=== PATIENT | male | born 1950 | race African-American/Black ===

== ENCOUNTER 2020-07-21 18:55 | Inpatient (IN) | payer MEDICARE, OTHER ==
[~2020-07-21] VITALS: Ht 190.5 cm; Wt 105.0 kg
[2020-07-21 20:37] LABS: HEMATOCRIT. 37.3 % (42.0-52.0); HEMOGLOBIN. 12.9 g/dL (14.0-18.0); MEAN CORPUSCULAR HEMOGLOBIN 32.2 pg (28.0-32.0); MEAN CORPUSCULAR VOLUME 93.3 fL (80.0-94.0); MEAN PLATELET VOLUME 8.4 fl (7.4-10.4); PLATELET 221 x1000/uL (130-400); RED CELL DISTRIBUTION WIDTH 14.7 % (11.6-14.6)
[2020-07-21 20:45] LABS: CHLORIDE 105 mEq/L (98-107)
[2020-07-21 20:47] LABS: INR 1.2; PROTHROMBIN TIME 12.7 sec (9.6-11.0)
[2020-07-21 21:26] LABS: CLARITY URINE CLEAR (CLEAR); COLOR URINE YELLOW (YELLOW); KETONES URINE NEGATIVE (NEGATIVE); LEUKOCYTE ESTERASE URINE NEGATIVE (NEGATIVE); NITRITE URINE NEGATIVE (NEGATIVE); OCCULT BLOOD URINE NEGATIVE (NEGATIVE); PH URINE 7.5 (4.5-8.0); PROTEIN URINE NEGATIVE (NEGATIVE); SPECIFIC GRAVITY URINE 1.008 (1.005-1.030)
[2020-07-21] MEDS ORDERED: POTASSIUM CHLORIDE 20MEQ TABLET SR PO NR (21:45)
[2020-07-21 21:46] LABS: PLATELET ESTIMATE NORMAL
[2020-07-22] MEDS ORDERED: KCL 10MEQ/50ML PREMIX 50 ML IV NR (00:30)
[2020-07-22] MEDS ORDERED: ASPIRIN 325MG EC TABLET PO ONE (01:30)
[2020-07-22 03:00] VITALS: BP 117/61
[2020-07-22 04:00] VITALS: BP 117/61
[2020-07-22 08:00] VITALS: BP 119/60
[2020-07-22 10:04] LABS: BASOPHILS % 0.7 % (0.0-2.0); EOSINOPHILS % 1.8 % (0.0-5.0); HEMATOCRIT. 35.3 % (42.0-52.0); HEMOGLOBIN. 11.8 g/dL (14.0-18.0); LYMPHOCYTES % 35.3 % (20.0-50.0); MEAN CORPUSCULAR HEMOGLOBIN 31.6 pg (28.0-32.0); MEAN CORPUSCULAR VOLUME 94.1 fL (80.0-94.0); MEAN PLATELET VOLUME 8.5 fl (7.4-10.4); MONOCYTES % 13.8 % (2.0-8.0); NEUTROPHILS % 48.4 % (40.0-76.0); PLATELET 215 x1000/uL (130-400); RED BLOOD CELL COUNT 3.75 mill/uL (4.7-6.1); RED CELL DISTRIBUTION WIDTH 15.2 % (11.6-14.6)
[2020-07-22 10:22] LABS: CHLORIDE 107 mEq/L (98-107)
[2020-07-22] MEDS ORDERED: ONDANSETRON HCL 4MG/2ML INJ IV PRN (11:00)
[2020-07-22] MEDS ORDERED: ENOXAPARIN 40MG/0.4ML SYR SUBCUT SCH (11:00)
[2020-07-22] MEDS ORDERED: IPRATROPIUM/ALBUTEROL 0.5-3(2.5)MG/3ML NEB HHN PRN (11:00)
[2020-07-22] MEDS ORDERED: DOCUSATE SODIUM 100MG CAPSULE PO PRN (11:00)
[2020-07-22] MEDS ORDERED: MAGNESIUM/ALUMINUM HYDROXIDE/SIMETHICONE 30ML UDC PO PRN (11:00)
[2020-07-22] MEDS ORDERED: CLONIDINE 0.1MG TABLET PO PRN (11:00)
[2020-07-22] MEDS ORDERED: ACETAMINOPHEN 325MG TABLET PO PRN (11:00)
[2020-07-22] MEDS ORDERED: HYDROCODONE/ACETAMINOPHEN 5/325MG TABLET PO PRN (11:00)
[2020-07-22] MEDS ORDERED: POTASSIUM CHLORIDE 20MEQ/PACKET PO SCH (12:00)
[2020-07-22] MEDS: ENOXAPARIN 30MG/0.3ML SYR SUBCUT SCH ×2 (12:47→21:48)
[2020-07-22 16:00] VITALS: BP 121/67
[2020-07-22 20:00] VITALS: BP 111/71
[2020-07-23] VITALS: BP 115/68
[2020-07-23 04:00] VITALS: BP 109/62
[2020-07-23] MEDS: OMEPRAZOLE 20MG CAPSULE EXTENDED RELEASE PO SCH (06:05)
[2020-07-23 07:13] LABS: BASOPHILS % 1.4 % (0.0-2.0); EOSINOPHILS % 2.2 % (0.0-5.0); HEMATOCRIT. 35.8 % (42.0-52.0); HEMOGLOBIN. 11.7 g/dL (14.0-18.0); LYMPHOCYTES % 40.1 % (20.0-50.0); MEAN CORPUSCULAR HEMOGLOBIN 30.7 pg (28.0-32.0); MEAN CORPUSCULAR VOLUME 93.9 fL (80.0-94.0); MEAN PLATELET VOLUME 8.7 fl (7.4-10.4); MONOCYTES % 12.7 % (2.0-8.0); NEUTROPHILS % 43.6 % (40.0-76.0); PLATELET 217 x1000/uL (130-400); RED BLOOD CELL COUNT 3.82 mill/uL (4.7-6.1); RED CELL DISTRIBUTION WIDTH 14.9 % (11.6-14.6)
[2020-07-23 07:19] LABS: CHLORIDE 104 mEq/L (98-107)
[2020-07-23 07:25] LABS: PHOSPHORUS 2.9 mg/dL (2.5-4.9)
[2020-07-23 07:29] LABS: HDL CHOLESTEROL 41 mg/dL (40-59); LDL CHOLESTEROL 75 mg/dL (5-100)
[2020-07-23 08:00] VITALS: BP 118/64
[2020-07-23] MEDS: ENOXAPARIN 30MG/0.3ML SYR SUBCUT SCH ×2 (09:13→20:46)
[2020-07-23 12:00] VITALS: BP 105/64
[2020-07-23 16:00] VITALS: BP 111/64
[2020-07-23] MEDS: POTASSIUM CHLORIDE 20MEQ TABLET SR PO SCH (17:10)
[2020-07-23 20:00] VITALS: BP 104/63
[2020-07-24] VITALS (7 sets, daily range): BP systolic 104–121; BP diastolic 59–65
[2020-07-24] MEDS: OMEPRAZOLE 20MG CAPSULE EXTENDED RELEASE PO SCH (06:25)
[2020-07-24 06:52] LABS: CHLORIDE 106 mEq/L (98-107)
[2020-07-24 06:55] LABS: HEMATOCRIT. 32.8 % (42.0-52.0); MEAN CORPUSCULAR HEMOGLOBIN 31.7 pg (28.0-32.0); MEAN CORPUSCULAR VOLUME 94.5 fL (80.0-94.0); MEAN PLATELET VOLUME 8.9 fl (7.4-10.4); PLATELET 210 x1000/uL (130-400); RED BLOOD CELL COUNT 3.47 mill/uL (4.7-6.1)
[2020-07-24] MEDS: ENOXAPARIN 30MG/0.3ML SYR SUBCUT SCH ×2 (08:57→20:23)
[2020-07-24] MEDS: POTASSIUM CHLORIDE 20MEQ TABLET SR PO SCH (08:57)
[2020-07-24 14:48] LABS: PLATELET ESTIMATE NORMAL
[2020-07-24] MEDS ORDERED: FAMOTIDINE 20MG TABLET PO SCH (21:00)
[2020-07-25] VITALS: BP 120/78
== END 2020-07-25 01:52 | disposition home or self-care (01) | DRG 74 ==
LOC: ER 18:55 → 5WST 07-22 00:03 → EDBEDREQDT 07-22 00:20 → EDBEDREQ 07-22 00:20 → EDBEDREQTM 07-22 00:20 → ENRESERV 07-22 01:37
PROVIDERS: ADMIT Internal Medicine; ATTEND Internal Medicine
DX: G90.9 Disorder of the autonomic nervous system, unspecified (principal); E87.6 Hypokalemia; I11.0 Hypertensive heart disease with heart failure; Z20.822 Contact with and (suspected) exposure to COVID-19; I50.9 Heart failure, unspecified; I48.91 Unspecified atrial fibrillation; Z79.02 Long term (current) use of antithrombotics/antiplatelets
CPT/HCPCS: 36415; 70551; 71045; 80048; 80053; 80061; 80076; 80320; 81003; 83735; 84100; 84443; 84484; 85025; 87426; 93005; 93306; 93880; 97162; 99285; J1650; J3480; G0480

== ENCOUNTER 2021-02-13 21:15 | Inpatient (IN) | payer MEDICARE, OTHER ==
[~2021-02-13] VITALS: Ht 190.5 cm; Wt 111.6 kg
[~2021-02-13 21:15] MED LIST: AMOX-494 MT
[2021-02-13] MEDS ORDERED: SODIUM CHLORIDE 0.9% 1,000 ML IV ONE (21:45)
[2021-02-13 22:47] LABS: HEMATOCRIT. 44.9 % (42.0-52.0); MEAN CORPUSCULAR HEMOGLOBIN 31.9 pg (28.0-32.0); MEAN CORPUSCULAR VOLUME 95.2 fL (80.0-94.0); MEAN PLATELET VOLUME 8.9 fl (7.4-10.4); PLATELET 388 x1000/uL (130-400); RED BLOOD CELL COUNT 4.71 mill/uL (4.7-6.1); RED CELL DISTRIBUTION WIDTH 13.8 % (11.6-14.6)
[2021-02-13 22:48] LABS: CHLORIDE 85 mEq/L (98-107)
[2021-02-13 22:52] LABS: ETHANOL BLOOD < 10 mg/dL
[2021-02-13 22:56] LABS: CREATINE KINASE 294 IU/L (39-308)
[2021-02-13] MEDS ORDERED: PIPERACILLIN/TAZ 3.375G PREMIX 50 ML IV NR (23:30)
[2021-02-13 23:32] LABS: CLARITY URINE CLOUDY (CLEAR); COLOR URINE DARK YELLOW (YELLOW); KETONES URINE NEGATIVE (NEGATIVE); LEUKOCYTE ESTERASE URINE 2+ (NEGATIVE); NITRITE URINE NEGATIVE (NEGATIVE); OCCULT BLOOD URINE 3+ (NEGATIVE); PH URINE 5.5 (4.5-8.0); PROTEIN URINE 1+ (NEGATIVE); SPECIFIC GRAVITY URINE 1.013 (1.005-1.030); UROBILINOGEN URINE 0.2 E.U./dL (0.2-1.0)
[2021-02-13 23:38] LABS: PLATELET ESTIMATE NORMAL
[2021-02-14] MEDS ORDERED: SODIUM CHLORIDE 0.9% 1,000 ML IV ONE (00:15)
[2021-02-14 00:29] LABS: *AMPHETAMINES SCREEN URINE NEGATIVE (NEGATIVE); *BARBITURATES SCREEN URINE NEGATIVE (NEGATIVE); *BENZODIAZEPINES SCREEN URINE NEGATIVE (NEGATIVE); *COCAINE SCREEN URINE PRESUMTIVE POSITIVE (NEGATIVE)
[2021-02-14 00:30] LABS: CANNABINOID URINE SCREEN PRESUMTIVE POSITIVE (NEGATIVE); METHADONE URINE SCREEN NEGATIVE (NEGATIVE); OPIATES URINE SCREEN NEGATIVE (NEGATIVE); PHENCYCLIDINE URINE SCREEN NEGATIVE (NEGATIVE)
[2021-02-14 08:35] VITALS: BP 145/88
[2021-02-14 10:44] VITALS: BP 145/88
[2021-02-14] MEDS ORDERED: ONDANSETRON HCL 4MG/2ML INJ IV PRN (11:15)
[2021-02-14] MEDS ORDERED: CLONIDINE 0.1MG TABLET PO PRN (11:15)
[2021-02-14] MEDS ORDERED: DOCUSATE SODIUM 100MG CAPSULE PO PRN (11:15)
[2021-02-14] MEDS ORDERED: MAGNESIUM/ALUMINUM HYDROXIDE/SIMETHICONE 30ML UDC PO PRN (11:15)
[2021-02-14] MEDS ORDERED: ACETAMINOPHEN 325MG TABLET PO PRN (11:15)
[2021-02-14] MEDS: SODIUM CHLORIDE 0.9% 1,000 ML IV SCH ×2 (11:23→23:43)
[2021-02-14] MEDS ORDERED: NALOXONE HCL 0.4MG/ML VIAL IV PRN (11:30)
[2021-02-14 12:00] VITALS: BP 147/91
[2021-02-14] MEDS: ENOXAPARIN 40MG/0.4ML SYR SUBCUT SCH (12:31)
[2021-02-14] MEDS: PANTOPRAZOLE SODIUM 40 MG/VIAL IV SCH (12:31)
[2021-02-14] MEDS: CEFTRIAXONE 1,000 MG in DEXTROSE 5% WATER 50 ML IV SCH (13:01)
[2021-02-14 16:00] VITALS: BP 155/70
[2021-02-14] MEDS ORDERED: VANCOMYCIN 2,000 MG in DEXT 5% WATER 500 ML IV NR (17:00)
[2021-02-14] MEDS: TAMSULOSIN HCL 0.4MG SR CAPSULE PO SCH (17:16)
[2021-02-14 20:00] VITALS: BP 126/76
[2021-02-14] MEDS: LINEZOLID 600 MG PREMIX 300 ML IV SCH (21:37)
[2021-02-15] VITALS: BP 132/80
[2021-02-15 04:00] VITALS: BP 150/60
[2021-02-15 06:29] LABS: CHLORIDE 103 mEq/L (98-107)
[2021-02-15 06:33] LABS: HEMATOCRIT. 41.2 % (42.0-52.0); HEMOGLOBIN. 13.9 g/dL (14.0-18.0); MEAN CORPUSCULAR HEMOGLOBIN 32.2 pg (28.0-32.0); MEAN CORPUSCULAR VOLUME 95.2 fL (80.0-94.0); MEAN PLATELET VOLUME 9.2 fl (7.4-10.4); PLATELET 390 x1000/uL (130-400); RED BLOOD CELL COUNT 4.33 mill/uL (4.7-6.1); RED CELL DISTRIBUTION WIDTH 13.6 % (11.6-14.6)
[2021-02-15 06:41] LABS: LDL CHOLESTEROL 101 mg/dL (5-100)
[2021-02-15 06:42] LABS: T4 FREE 1.15 ng/dL (0.76-1.46)
[2021-02-15 06:44] LABS: HDL CHOLESTEROL 20 mg/dL (40-59)
[2021-02-15 08:00] VITALS: BP 112/64
[2021-02-15] MEDS: PANTOPRAZOLE SODIUM 40 MG/VIAL IV SCH (10:20)
[2021-02-15] MEDS: LINEZOLID 600 MG PREMIX 300 ML IV SCH ×2 (10:20→21:32)
[2021-02-15] MEDS: TAMSULOSIN HCL 0.4MG SR CAPSULE PO SCH (10:20)
[2021-02-15] MEDS: ENOXAPARIN 40MG/0.4ML SYR SUBCUT SCH (10:20)
[2021-02-15] MEDS ORDERED: SODIUM CHLORIDE 0.45% 1,000 ML IV SCH (10:45)
[2021-02-15] MEDS ORDERED: POTASSIUM CHLORIDE 20MEQ TABLET SR PO NR (10:45)
[2021-02-15 12:00] VITALS: BP 119/73
[2021-02-15] MEDS: CEFTRIAXONE 1,000 MG in DEXTROSE 5% WATER 50 ML IV SCH (12:12)
[2021-02-15 16:00] VITALS: BP 122/68
[2021-02-15] MEDS: METOCLOPRAMIDE HCL 10MG/2ML VIAL IV SCH ×2 (18:51→23:34)
[2021-02-15 20:00] VITALS: BP 126/70
[2021-02-15 20:27] LABS: PLATELET ESTIMATE NORMAL
[2021-02-15] MEDS: ENOXAPARIN 30MG/0.3ML SYR SUBCUT SCH (21:32)
[2021-02-15] MEDS: SODIUM CHLORIDE 0.9% 1,000 ML IV SCH (21:39)
[2021-02-16] VITALS: BP 115/67
[2021-02-16 04:00] VITALS: BP 136/78
[2021-02-16] MEDS: METOCLOPRAMIDE HCL 10MG/2ML VIAL IV SCH ×3 (06:26→16:49)
[2021-02-16 06:29] LABS: HEMATOCRIT. 34.5 % (42.0-52.0); MEAN CORPUSCULAR HEMOGLOBIN 32.9 pg (28.0-32.0); MEAN CORPUSCULAR VOLUME 95.1 fL (80.0-94.0); MEAN PLATELET VOLUME 8.3 fl (7.4-10.4); PLATELET 359 x1000/uL (130-400); RED BLOOD CELL COUNT 3.63 mill/uL (4.7-6.1); RED CELL DISTRIBUTION WIDTH 13.5 % (11.6-14.6)
[2021-02-16 08:00] VITALS: BP 133/75
[2021-02-16] MEDS: PANTOPRAZOLE SODIUM 40 MG/VIAL IV SCH (09:00)
[2021-02-16] MEDS: LINEZOLID 600 MG PREMIX 300 ML IV SCH (09:00)
[2021-02-16] MEDS: TAMSULOSIN HCL 0.4MG SR CAPSULE PO SCH (09:00)
[2021-02-16] MEDS: ENOXAPARIN 30MG/0.3ML SYR SUBCUT SCH ×2 (09:00→22:11)
[2021-02-16 12:00] VITALS: BP 128/81
[2021-02-16] MEDS: CEFTRIAXONE 1,000 MG in DEXTROSE 5% WATER 50 ML IV SCH (12:54)
[2021-02-16] MEDS: SODIUM CHLORIDE 0.9% 1,000 ML IV SCH (12:55)
[2021-02-16 13:26] LABS: CHLORIDE 108 mEq/L (98-107)
[2021-02-16 13:33] LABS: PHOSPHORUS 1.7 mg/dL (2.5-4.9)
[2021-02-16] MEDS ORDERED: LACTULOSE 20G/30ML UDC PO NR (14:15)
[2021-02-16] MEDS: AMPICILLIN 2,000 MG in SODIUM CHLORIDE 0.9% 100 ML IV SCH ×2 (15:24→16:49)
[2021-02-16 16:00] VITALS: BP 143/79
[2021-02-16] MEDS ORDERED: NA PHOS,M-B/NA PHOS,DI-BA ENEMA 118ML PR NR (16:45)
[2021-02-16 18:05] LABS: PLATELET ESTIMATE NORMAL
[2021-02-16 20:48] LABS: CREATINE KINASE 59 IU/L (39-308)
[2021-02-17] MEDS: AMPICILLIN 2,000 MG in SODIUM CHLORIDE 0.9% 100 ML IV SCH ×5 (01:31→23:46)
[2021-02-17] MEDS: METOCLOPRAMIDE HCL 10MG/2ML VIAL IV SCH ×5 (01:31→23:46)
[2021-02-17 08:00] VITALS: BP 135/66
[2021-02-17] MEDS: PANTOPRAZOLE SODIUM 40 MG/VIAL IV SCH (08:55)
[2021-02-17] MEDS: ENOXAPARIN 30MG/0.3ML SYR SUBCUT SCH ×2 (08:55→20:01)
[2021-02-17] MEDS: TAMSULOSIN HCL 0.4MG SR CAPSULE PO SCH (08:56)
[2021-02-17 12:00] VITALS: BP 113/61
[2021-02-17 16:02] VITALS: BP 127/70
[2021-02-17 20:00] VITALS: BP 120/70
[2021-02-17] MEDS: HYDROCODONE/ACETAMINOPHEN 5/325MG TABLET PO PRN (20:05)
[2021-02-18] VITALS: BP 139/90
[2021-02-18 04:00] VITALS: BP 136/87
[2021-02-18] MEDS: METOCLOPRAMIDE HCL 10MG/2ML VIAL IV SCH ×3 (05:03→17:23)
[2021-02-18] MEDS: AMPICILLIN 2,000 MG in SODIUM CHLORIDE 0.9% 100 ML IV SCH ×3 (05:04→17:23)
[2021-02-18] MEDS: HYDROCODONE/ACETAMINOPHEN 5/325MG TABLET PO PRN (06:32)
[2021-02-18 08:00] VITALS: BP 110/71
[2021-02-18] MEDS ORDERED: TAMS-11 PO (08:43)
[2021-02-18] MEDS: PANTOPRAZOLE SODIUM 40 MG/VIAL IV SCH (09:09)
[2021-02-18] MEDS: TAMSULOSIN HCL 0.4MG SR CAPSULE PO SCH (09:09)
[2021-02-18] MEDS: ENOXAPARIN 30MG/0.3ML SYR SUBCUT SCH (09:09)
[2021-02-18 11:47] LABS: HEMATOCRIT. 37.8 % (42.0-52.0); HEMOGLOBIN. 12.7 g/dL (14.0-18.0); MEAN CORPUSCULAR HEMOGLOBIN 32.1 pg (28.0-32.0); MEAN CORPUSCULAR VOLUME 95.5 fL (80.0-94.0); MEAN PLATELET VOLUME 7.8 fl (7.4-10.4); PLATELET 482 x1000/uL (130-400); RED BLOOD CELL COUNT 3.96 mill/uL (4.7-6.1); RED CELL DISTRIBUTION WIDTH 13.7 % (11.6-14.6)
[2021-02-18 11:53] LABS: CHLORIDE 102 mEq/L (98-107)
[2021-02-18 12:00] VITALS: BP 102/55
[2021-02-18 13:49] LABS: PLATELET ESTIMATE SLIGHTLY INCREASED
[2021-02-18 14:26] VITALS: BP 136/72
[2021-02-18] MEDS ORDERED: LINE600T14 MT (14:38)
[2021-02-18 16:00] VITALS: BP 136/72
[2021-02-18] MEDS ORDERED: POTASSIUM CHLORIDE 20MEQ TABLET SR PO NR (16:30)
[2021-02-19] MEDS ORDERED: FAMOTIDINE 20MG TABLET PO SCH (09:00)
== END 2021-02-18 20:44 | disposition home or self-care (01) | DRG 871 ==
LOC: ER 21:15 → EDBEDREQ 02-14 01:06 → EDBEDREQTM 02-14 01:06 → 8WST 02-14 06:55 → ENRESERV 02-14 07:33
PROVIDERS: ADMIT Internal Medicine; ATTEND Internal Medicine
DX: A40.9 Streptococcal sepsis, unspecified (principal); N17.0 Acute kidney failure with tubular necrosis; E43 Unspecified severe protein-calorie malnutrition; E87.1 Hypo-osmolality and hyponatremia; E87.2 Acidosis; I13.0 Hypertensive heart and chronic kidney disease with heart failure and stage 1 through stage 4 chronic kidney disease, or unspecified chronic kidney disease; N13.6 Pyonephrosis; F14.10 Cocaine abuse, uncomplicated; I50.9 Heart failure, unspecified; N18.9 Chronic kidney disease, unspecified; B95.2 Enterococcus as the cause of diseases classified elsewhere; N40.1 Benign prostatic hyperplasia with lower urinary tract symptoms; F12.10 Cannabis abuse, uncomplicated; Z68.30 Body mass index [BMI] 30.0-30.9, adult; I48.91 Unspecified atrial fibrillation; Z20.822 Contact with and (suspected) exposure to COVID-19; Z87.891 Personal history of nicotine dependence
CPT/HCPCS: 36415; 71045; 74018; 76770; 80048; 80053; 80061; 80076; 80305; 80320; 81003; 82533; 82550; 83605; 83735; 83930; 84100; 84145; 84295; 84439; 84443; 84484; 85025; 87077; 87186; 87426; 93005; 93306; 93970; 97162; 99291; C9113; J0290; J0696; J1650; J2020; J2543; J2765; J3370; J7030; J7050; J7060; A4315; G0480

== ENCOUNTER 2021-02-28 13:15 | Inpatient (IN) | payer MEDICARE, OTHER ==
[~2021-02-28] VITALS: Ht 190.5 cm; Wt 98.4 kg
[~2021-02-28 13:15] MED LIST changes: -AMOX-494 MT; +LINE600T14 MT; +TAMS-11 PO
[2021-02-28] MEDS ORDERED: ONDANSETRON HCL 4MG/2ML INJ IV STA (14:39)
[2021-02-28 15:22] LABS: HEMATOCRIT. 42.1 % (42.0-52.0); HEMOGLOBIN. 13.8 g/dL (14.0-18.0); MEAN CORPUSCULAR HEMOGLOBIN 31.3 pg (28.0-32.0); MEAN CORPUSCULAR VOLUME 95.4 fL (80.0-94.0); MEAN PLATELET VOLUME 8.1 fl (7.4-10.4); PLATELET 309 x1000/uL (130-400); RED BLOOD CELL COUNT 4.42 mill/uL (4.7-6.1)
[2021-02-28 15:27] LABS: CHLORIDE 98 mEq/L (98-107)
[2021-02-28 16:01] LABS: PLATELET ESTIMATE NORMAL
[2021-02-28 19:36] LABS: CLARITY URINE CLEAR (CLEAR); COLOR URINE YELLOW (YELLOW); KETONES URINE NEGATIVE (NEGATIVE); LEUKOCYTE ESTERASE URINE 3+ (NEGATIVE); NITRITE URINE NEGATIVE (NEGATIVE); OCCULT BLOOD URINE 3+ (NEGATIVE); PROTEIN URINE 1+ (NEGATIVE); SPECIFIC GRAVITY URINE 1.008 (1.005-1.030); UROBILINOGEN URINE 0.2 E.U./dL (0.2-1.0)
[2021-02-28] MEDS ORDERED: ACETAMINOPHEN 325MG TABLET PO ONE (19:45)
[2021-02-28] MEDS ORDERED: CEFTRIAXONE 1 G PREMIX 50 ML IV NR (20:00)
[2021-02-28] MEDS ORDERED: ENOXAPARIN 40MG/0.4ML SYR SUBCUT SCH (20:15)
[2021-02-28] MEDS ORDERED: MAGNESIUM/ALUMINUM HYDROXIDE/SIMETHICONE 30ML UDC PO PRN (20:15)
[2021-02-28] MEDS ORDERED: ACETAMINOPHEN 325MG TABLET PO PRN ×2 (20:15)
[2021-02-28] MEDS ORDERED: ONDANSETRON HCL 4MG/2ML INJ IV PRN (20:15)
[2021-02-28] MEDS ORDERED: HYDROCODONE/ACETAMINOPHEN 5/325MG TABLET PO PRN (20:15)
[2021-02-28] MEDS ORDERED: ENOXAPARIN 30MG/0.3ML SYR SUBCUT SCH (21:00)
[2021-02-28 22:40] VITALS: BP 97/58
[2021-03-01] MEDS: SODIUM CHLORIDE 0.9% 1,000 ML IV SCH ×5 (02:00→22:36)
[2021-03-01 04:00] VITALS: BP 111/61
[2021-03-01 06:45] LABS: BASOPHILS % 0.5 % (0.0-2.0); EOSINOPHILS % 2.7 % (0.0-5.0); HEMATOCRIT. 37.5 % (42.0-52.0); HEMOGLOBIN. 12.3 g/dL (14.0-18.0); LYMPHOCYTES % 13.8 % (20.0-50.0); MEAN CORPUSCULAR HEMOGLOBIN 32.2 pg (28.0-32.0); MEAN CORPUSCULAR VOLUME 97.9 fL (80.0-94.0); MEAN PLATELET VOLUME 8.4 fl (7.4-10.4); MONOCYTES % 12.7 % (2.0-8.0); NEUTROPHILS % 70.3 % (40.0-76.0); PLATELET 250 x1000/uL (130-400); RED BLOOD CELL COUNT 3.82 mill/uL (4.7-6.1); RED CELL DISTRIBUTION WIDTH 13.9 % (11.6-14.6)
[2021-03-01 07:07] LABS: PHOSPHORUS 4.1 mg/dL (2.5-4.9)
[2021-03-01 08:00] VITALS: BP 106/66
[2021-03-01] MEDS: THIAMINE HCL 100MG TABLET PO SCH (09:13)
[2021-03-01 12:00] VITALS: BP 120/73
[2021-03-01] MEDS ORDERED: LOSA25TA26 PO (13:48)
[2021-03-01] MEDS ORDERED: LOSA25TA26 MT (13:49)
[2021-03-01] MEDS ORDERED: SPIR25TA6 MT (13:50)
[2021-03-01] MEDS: PIPERACILLIN/TAZOBACTAM 3.375 G in DEXTROSE 5% WATER 50 ML IV SCH ×2 (13:54→22:36)
[2021-03-01 16:00] VITALS: BP 110/62
[2021-03-01] MEDS: ENOXAPARIN 40MG/0.4ML SYR SUBCUT SCH (17:25)
[2021-03-01 20:00] VITALS: BP 116/64
[2021-03-02] VITALS: BP 119/63
[2021-03-02 04:00] VITALS: BP 108/67
[2021-03-02] MEDS: PIPERACILLIN/TAZOBACTAM 3.375 G in DEXTROSE 5% WATER 50 ML IV SCH ×3 (05:22→22:26)
[2021-03-02] MEDS: SODIUM CHLORIDE 0.9% 1,000 ML IV SCH (05:23)
[2021-03-02 08:00] VITALS: BP 124/72
[2021-03-02 08:08] LABS: CHLORIDE 109 mEq/L (98-107)
[2021-03-02 08:20] LABS: BASOPHILS % 0.8 % (0.0-2.0); EOSINOPHILS % 3.9 % (0.0-5.0); HEMATOCRIT. 33.4 % (42.0-52.0); HEMOGLOBIN. 11.1 g/dL (14.0-18.0); LYMPHOCYTES % 21.9 % (20.0-50.0); MEAN CORPUSCULAR HEMOGLOBIN 31.8 pg (28.0-32.0); MEAN CORPUSCULAR VOLUME 95.9 fL (80.0-94.0); MEAN PLATELET VOLUME 8.5 fl (7.4-10.4); MONOCYTES % 14.5 % (2.0-8.0); NEUTROPHILS % 58.9 % (40.0-76.0); PLATELET 267 x1000/uL (130-400); RED BLOOD CELL COUNT 3.48 mill/uL (4.7-6.1)
[2021-03-02] MEDS: THIAMINE HCL 100MG TABLET PO SCH (09:40)
[2021-03-02] MEDS ORDERED: POTASSIUM CHLORIDE 20MEQ TABLET SR PO NR (10:00)
[2021-03-02 12:00] VITALS: BP 133/83
[2021-03-02 16:00] VITALS: BP 121/84
[2021-03-02] MEDS: ENOXAPARIN 40MG/0.4ML SYR SUBCUT SCH (18:50)
[2021-03-02 20:00] VITALS: BP 126/78
[2021-03-02] MEDS: TAMSULOSIN HCL 0.4MG SR CAPSULE PO SCH (22:26)
[2021-03-02] MEDS: FINASTERIDE 5MG TABLET PO SCH (22:26)
[2021-03-02] MEDS: FLUCONAZOLE 150MG TABLET PO SCH (22:26)
[2021-03-03] VITALS: BP 122/70
[2021-03-03 04:00] VITALS: BP 123/76
[2021-03-03] MEDS: PIPERACILLIN/TAZOBACTAM 3.375 G in DEXTROSE 5% WATER 50 ML IV SCH ×2 (05:20→13:35)
[2021-03-03 06:59] LABS: BASOPHILS % 1.5 % (0.0-2.0); EOSINOPHILS % 2.5 % (0.0-5.0); HEMATOCRIT. 32.7 % (42.0-52.0); LYMPHOCYTES % 29.8 % (20.0-50.0); MEAN CORPUSCULAR HEMOGLOBIN 31.9 pg (28.0-32.0); MEAN CORPUSCULAR VOLUME 94.7 fL (80.0-94.0); MEAN PLATELET VOLUME 8.2 fl (7.4-10.4); MONOCYTES % 13.5 % (2.0-8.0); NEUTROPHILS % 52.7 % (40.0-76.0); PLATELET 249 x1000/uL (130-400); RED BLOOD CELL COUNT 3.46 mill/uL (4.7-6.1)
[2021-03-03 07:00] LABS: CHLORIDE 107 mEq/L (98-107)
[2021-03-03 07:17] LABS: PHOSPHORUS 2.6 mg/dL (2.5-4.9)
[2021-03-03] MEDS ORDERED: POTASSIUM CHLORIDE 20MEQ TABLET SR PO SCH (08:30)
[2021-03-03] MEDS: TAMSULOSIN HCL 0.4MG SR CAPSULE PO SCH (09:37)
[2021-03-03] MEDS: THIAMINE HCL 100MG TABLET PO SCH (09:38)
[2021-03-03] MEDS: FINASTERIDE 5MG TABLET PO SCH (09:38)
[2021-03-03] MEDS ORDERED: MAGNESIUM 2 G PREMIX 50 ML IV SCH (10:00)
[2021-03-03] MEDS: FLUCONAZOLE 150MG TABLET PO SCH (13:28)
[2021-03-03] MEDS ORDERED: FINA5TAB11 PO (15:57)
[2021-03-03] MEDS ORDERED: DIF15 PO (15:57)
[2021-03-03] MEDS ORDERED: THIA100T72 PO (15:57)
[2021-03-03] MEDS ORDERED: POLY17PO3 MT (16:01)
[2021-03-03] MEDS: ENOXAPARIN 40MG/0.4ML SYR SUBCUT SCH (17:21)
== END 2021-03-03 17:45 | disposition home or self-care (01) | DRG 872 ==
LOC: ER 13:15 → 6EST 19:36 → EDBEDREQTM 19:42 → EDBEDREQ 19:42 → SUPCPDRO 19:59 → ENRESERV 21:04
PROVIDERS: ADMIT Internal Medicine; ATTEND Internal Medicine
DX: A41.9 Sepsis, unspecified organism (principal); E87.1 Hypo-osmolality and hyponatremia; N17.9 Acute kidney failure, unspecified; E87.2 Acidosis; N13.6 Pyonephrosis; I13.0 Hypertensive heart and chronic kidney disease with heart failure and stage 1 through stage 4 chronic kidney disease, or unspecified chronic kidney disease; N18.9 Chronic kidney disease, unspecified; I50.9 Heart failure, unspecified; N40.0 Benign prostatic hyperplasia without lower urinary tract symptoms; K59.00 Constipation, unspecified; E88.09 Other disorders of plasma-protein metabolism, not elsewhere classified; D64.9 Anemia, unspecified; Z79.899 Other long term (current) drug therapy; Z87.891 Personal history of nicotine dependence; Z91.19 Patient's noncompliance with other medical treatment and regimen
CPT/HCPCS: 36415; 74176; 76770; 80048; 80053; 81003; 83735; 84100; 84145; 84484; 85025; 87106; 99285; J0696; J1650; J2405; J2543; J3475; J7060; A4315

== ENCOUNTER 2021-03-04 16:14 | Emergency (ER) | payer MEDICARE, OTHER ==
[~2021-03-04] VITALS: Ht 190.5 cm; Wt 92.0 kg
[~2021-03-04 16:14] MED LIST changes: +DIF15 PO; +FINA5TAB11 PO; +LOSA25TA26 MT; +POLY17PO3 MT; +SPIR25TA6 MT; +THIA100T72 PO
[2021-03-04 16:17] VITALS: BP 135/87
== END 2021-03-04 19:24 | disposition home or self-care (01) ==
LOC: ER 16:14
DX: R33.9 Retention of urine, unspecified (principal); I11.0 Hypertensive heart disease with heart failure; I50.9 Heart failure, unspecified; Z98.890 Other specified postprocedural states
CPT/HCPCS: 51702; 99284

== ENCOUNTER 2021-10-14 12:54 | Inpatient (IN) | payer MEDICARE, OTHER, MEDICAID ==
[~2021-10-14] VITALS: Ht 182.9 cm; Wt 81.1 kg
[2021-10-14] MEDS ORDERED: SODIUM CHLORIDE 0.9% 1000ML BAG (SEPSIS BOLUS) IV NR (16:00)
[2021-10-14 16:06] LABS: BASOPHILS % 0.5 % (0.0-2.0); EOSINOPHILS % 1.2 % (0.0-5.0); HEMATOCRIT. 50.2 % (42.0-52.0); HEMOGLOBIN. 16.2 g/dL (14.0-18.0); LYMPHOCYTES % 22.9 % (20.0-50.0); MEAN CORPUSCULAR HEMOGLOBIN 32.2 pg (28.0-32.0); MEAN CORPUSCULAR VOLUME 99.6 fL (80.0-94.0); MONOCYTES % 12.9 % (2.0-8.0); NEUTROPHILS % 62.5 % (40.0-76.0); RED BLOOD CELL COUNT 5.04 mill/uL (4.7-6.1); RED CELL DISTRIBUTION WIDTH 15.2 % (11.6-14.6)
[2021-10-14 16:11] LABS: CHLORIDE 113 mEq/L (98-107)
[2021-10-14 16:55] LABS: CLARITY URINE CLEAR (CLEAR); COLOR URINE YELLOW (YELLOW); KETONES URINE NEGATIVE (NEGATIVE); LEUKOCYTE ESTERASE URINE 1+ (NEGATIVE); NITRITE URINE POSITIVE (NEGATIVE); OCCULT BLOOD URINE 3+ (NEGATIVE); PH URINE 7.5 (4.5-8.0); PROTEIN URINE NEGATIVE (NEGATIVE); SPECIFIC GRAVITY URINE 1.003 (1.005-1.030); UROBILINOGEN URINE 0.2 E.U./dL (0.2-1.0)
[2021-10-14 17:01] LABS: MEAN PLATELET VOLUME 10.3 fl (7.4-10.4); PLATELET 198 x1000/uL (130-400)
[2021-10-14] MEDS ORDERED: LEVOFLOXACIN 500MG PREMIX 100 ML IV NR (20:45)
[2021-10-15 02:22] VITALS: BP 142/70
[2021-10-15] MEDS ORDERED: ACETAMINOPHEN 325MG TABLET PO PRN ×3 (03:30→10:15)
[2021-10-15] MEDS ORDERED: CLONIDINE 0.1MG TABLET PO PRN ×2 (03:30→10:15)
[2021-10-15 08:00] VITALS: BP 115/61
[2021-10-15] MEDS ORDERED: DOCUSATE SODIUM 100MG CAPSULE PO PRN (10:15)
[2021-10-15] MEDS ORDERED: IPRATROPIUM/ALBUTEROL 0.5-3(2.5)MG/3ML NEB HHN PRN (10:15)
[2021-10-15] MEDS ORDERED: CEFTRIAXONE 1 G PREMIX 50 ML IV SCH (10:15)
[2021-10-15] MEDS ORDERED: ONDANSETRON HCL 4MG/2ML INJ IV PRN (10:15)
[2021-10-15] MEDS ORDERED: TAMSULOSIN HCL 0.4MG SR CAPSULE PO SCH (10:30)
[2021-10-15] MEDS ORDERED: LACTULOSE 20G/30ML UDC PO PRN (10:30)
[2021-10-15] MEDS: CEFTRIAXONE 1,000 MG in DEXTROSE 5% WATER 50 ML IV SCH (11:52)
[2021-10-15] MEDS: FINASTERIDE 5MG TABLET PO SCH (11:52)
[2021-10-15] MEDS: SODIUM CHLORIDE 0.9% 1,000 ML IV SCH ×2 (11:54→22:47)
[2021-10-15 12:00] VITALS: BP 117/56
[2021-10-15] MEDS ORDERED: DABI75CA3 MT (12:55)
[2021-10-15 13:24] LABS: BASOPHILS % 0.5 % (0.0-2.0); EOSINOPHILS % 1.9 % (0.0-5.0); HEMATOCRIT. 39.2 % (42.0-52.0); HEMOGLOBIN. 12.8 g/dL (14.0-18.0); LYMPHOCYTES % 18.2 % (20.0-50.0); MEAN CORPUSCULAR HEMOGLOBIN 32.2 pg (28.0-32.0); MEAN CORPUSCULAR VOLUME 98.4 fL (80.0-94.0); MEAN PLATELET VOLUME 9.9 fl (7.4-10.4); MONOCYTES % 11.8 % (2.0-8.0); NEUTROPHILS % 67.6 % (40.0-76.0); PLATELET 143 x1000/uL (130-400); RED BLOOD CELL COUNT 3.98 mill/uL (4.7-6.1); RED CELL DISTRIBUTION WIDTH 15.2 % (11.6-14.6)
[2021-10-15 13:31] LABS: INR 1.2; PROTHROMBIN TIME 12.4 sec (9.6-11.0)
[2021-10-15 13:38] LABS: CHLORIDE 107 mEq/L (98-107)
[2021-10-15] MEDS ORDERED: NALOXONE HCL 0.4MG/ML VIAL IV PRN (14:15)
[2021-10-15] MEDS ORDERED: IOHEXOL-300 100 ML BOTTLE ONE (15:11)
[2021-10-15 16:00] VITALS: BP 118/55
[2021-10-15] MEDS ORDERED: NA PHOS,M-B/NA PHOS,DI-BA ENEMA 118ML PR NR (16:00)
[2021-10-15 20:00] VITALS: BP 121/72
[2021-10-15] MEDS ORDERED: LEVOFLOXACIN 500MG PREMIX 100 ML IV SCH (21:00)
[2021-10-16] VITALS: BP 124/80
[2021-10-16 04:00] VITALS: BP 114/66
[2021-10-16 08:00] VITALS: BP 127/73
[2021-10-16 08:20] LABS: BASOPHILS % 0.6 % (0.0-2.0); EOSINOPHILS % 2.9 % (0.0-5.0); HEMATOCRIT. 38.6 % (42.0-52.0); HEMOGLOBIN. 12.7 g/dL (14.0-18.0); LYMPHOCYTES % 20.7 % (20.0-50.0); MEAN CORPUSCULAR HEMOGLOBIN 32.2 pg (28.0-32.0); MEAN CORPUSCULAR VOLUME 97.4 fL (80.0-94.0); MEAN PLATELET VOLUME 10.2 fl (7.4-10.4); NEUTROPHILS % 62.8 % (40.0-76.0); PLATELET 133 x1000/uL (130-400); RED BLOOD CELL COUNT 3.96 mill/uL (4.7-6.1); RED CELL DISTRIBUTION WIDTH 15.3 % (11.6-14.6)
[2021-10-16 08:23] LABS: CHLORIDE 110 mEq/L (98-107)
[2021-10-16] MEDS: FINASTERIDE 5MG TABLET PO SCH (08:45)
[2021-10-16] MEDS ORDERED: POTASSIUM CHLORIDE 20MEQ TABLET SR PO NR (10:45)
[2021-10-16] MEDS: CEFTRIAXONE 1,000 MG in DEXTROSE 5% WATER 50 ML IV SCH (11:36)
[2021-10-16] MEDS: SODIUM CHLORIDE 0.9% 1,000 ML IV SCH (11:37)
[2021-10-16] MEDS ORDERED: ENOXAPARIN 80MG/0.8ML SYR SUBCUT SCH (12:45)
[2021-10-16 16:00] VITALS: BP 120/70
[2021-10-16 20:00] VITALS: BP 119/72
[2021-10-16] MEDS: HYDROCODONE/ACETAMINOPHEN 5/325MG TABLET PO PRN ×2 (20:03→23:33)
[2021-10-16] MEDS: LORAZEPAM 0.5MG TABLET PO PRN ×2 (20:03→23:33)
[2021-10-16] MEDS: ENOXAPARIN 80MG/0.8ML SYR SUBCUT SCH (23:34)
[2021-10-17] VITALS: BP 120/76
[2021-10-17] MEDS: HYDROCODONE/ACETAMINOPHEN 5/325MG TABLET PO PRN (03:04)
[2021-10-17] MEDS: LORAZEPAM 0.5MG TABLET PO PRN (03:04)
[2021-10-17 04:00] VITALS: BP 109/66
[2021-10-17 06:47] LABS: HEMOGLOBIN. 12.5 g/dL (14.0-18.0); MEAN CORPUSCULAR HEMOGLOBIN 32.5 pg (28.0-32.0); MEAN CORPUSCULAR VOLUME 98.5 fL (80.0-94.0); MEAN PLATELET VOLUME 10.2 fl (7.4-10.4); PLATELET 145 x1000/uL (130-400); RED BLOOD CELL COUNT 3.86 mill/uL (4.7-6.1); RED CELL DISTRIBUTION WIDTH 15.3 % (11.6-14.6)
[2021-10-17 07:38] LABS: CHLORIDE 109 mEq/L (98-107)
[2021-10-17 08:00] VITALS: BP 111/69
[2021-10-17] MEDS: FINASTERIDE 5MG TABLET PO SCH (11:00)
[2021-10-17] MEDS: ENOXAPARIN 80MG/0.8ML SYR SUBCUT SCH (11:01)
[2021-10-17 12:00] VITALS: BP 125/68
[2021-10-17] MEDS: CEFTRIAXONE 1,000 MG in DEXTROSE 5% WATER 50 ML IV SCH (13:20)
[2021-10-17 16:00] VITALS: BP 135/70
[2021-10-17 16:38] VITALS: BP 128/85
[2021-10-17 21:45] LABS: PLATELET ESTIMATE NORMAL
== END 2021-10-17 18:32 | disposition home or self-care (01) | DRG 698 ==
LOC: ER 12:54 → 6EST 20:34 → EDBEDREQTM 20:39 → EDBEDREQSVC 20:39 → EDBEDREQ 20:39 → ENRESERV 23:59
PROVIDERS: ADMIT Internal Medicine; ATTEND Internal Medicine
DX: T83.518A Infection and inflammatory reaction due to other urinary catheter, initial encounter (principal); A41.9 Sepsis, unspecified organism; N39.0 Urinary tract infection, site not specified; E87.2 Acidosis; S37.22XA Contusion of bladder, initial encounter; E86.0 Dehydration; R31.0 Gross hematuria; I11.0 Hypertensive heart disease with heart failure; N40.1 Benign prostatic hyperplasia with lower urinary tract symptoms; I50.9 Heart failure, unspecified; I48.91 Unspecified atrial fibrillation; J44.9 Chronic obstructive pulmonary disease, unspecified; K59.00 Constipation, unspecified; F14.90 Cocaine use, unspecified, uncomplicated; Z85.46 Personal history of malignant neoplasm of prostate; Z79.899 Other long term (current) drug therapy; Z87.891 Personal history of nicotine dependence; Z79.01 Long term (current) use of anticoagulants; Z82.49 Family history of ischemic heart disease and other diseases of the circulatory system; X58.XXXA Exposure to other specified factors, initial encounter; Y93.89 Activity, other specified; Y92.89 Other specified places as the place of occurrence of the external cause; Y99.8 Other external cause status
CPT/HCPCS: 36415; 71045; 74177; 80048; 80053; 81003; 83605; 84145; 85025; 87077; 87186; 93005; 93306; 99291; J0696; J1650; J1956; J7030; J7060; Q9967

== ENCOUNTER 2021-12-22 14:00 | Inpatient (IN) | payer MEDICARE, OTHER, MEDICAID ==
[~2021-12-22] VITALS: Ht 190.5 cm; Wt 91.7 kg
[~2021-12-22 14:00] MED LIST changes: -DIF15 PO; +DILT120C88 PO; +FERR-63 PO; +FURO20TA4 PO; -LINE600T14 MT; -LOSA25TA26 MT; +MULT-1116 PO; -SPIR25TA6 MT
[2021-12-22 15:37] LABS: BASOPHILS % 0.7 % (0.0-2.0); EOSINOPHILS % 0.9 % (0.0-5.0); HEMATOCRIT. 24.4 % (42.0-52.0); HEMOGLOBIN. 8.1 g/dL (14.0-18.0); LYMPHOCYTES % 17.6 % (20.0-50.0); MEAN CORPUSCULAR HEMOGLOBIN 32.9 pg (28.0-32.0); MEAN PLATELET VOLUME 7.8 fl (7.4-10.4); MONOCYTES % 8.9 % (2.0-8.0); NEUTROPHILS % 71.9 % (40.0-76.0); PLATELET 337 x1000/uL (130-400); RED BLOOD CELL COUNT 2.46 mill/uL (4.7-6.1); RED CELL DISTRIBUTION WIDTH 17.8 % (11.6-14.6)
[2021-12-22 15:48] LABS: CHLORIDE 109 mEq/L (98-107)
[2021-12-22] MEDS ORDERED: SODIUM CHLORIDE 0.9% 500 ML IV ONE (16:00)
[2021-12-22] MEDS ORDERED: ONDANSETRON HCL 4MG/2ML INJ IV PRN (18:30)
[2021-12-22] MEDS ORDERED: CLONIDINE 0.1MG TABLET PO PRN (18:30)
[2021-12-22] MEDS ORDERED: ACETAMINOPHEN 325MG TABLET PO PRN ×2 (18:30)
[2021-12-22] MEDS ORDERED: MAGNESIUM/ALUMINUM HYDROXIDE/SIMETHICONE 30ML UDC PO PRN (18:30)
[2021-12-22] MEDS ORDERED: GUAIFENESIN 200MG/10ML SUGAR FREE UDC PO PRN (18:30)
[2021-12-22] MEDS ORDERED: DOCUSATE SODIUM 100MG CAPSULE PO PRN (18:30)
[2021-12-22] MEDS ORDERED: IPRATROPIUM/ALBUTEROL 0.5-3(2.5)MG/3ML NEB HHN PRN (18:30)
[2021-12-22] MEDS ORDERED: NALOXONE HCL 0.4MG/ML VIAL IV PRN (18:45)
[2021-12-22 19:19] LABS: PHOSPHORUS 2.9 mg/dL (2.5-4.9)
[2021-12-22] MEDS ORDERED: LORAZEPAM 1MG TABLET PO PRN (19:30)
[2021-12-22] MEDS ORDERED: MAGNESIUM HYDROXIDE 400MG/5ML 30ML UDC PO PRN (19:30)
[2021-12-22 19:41] LABS: FERRITIN 53 ng/mL (22-322)
[2021-12-22 19:51] LABS: VITAMIN B12 SERUM 525 pg/mL (211-911)
[2021-12-22 23:50] VITALS: BP_SYST 116; BP_SYST 124; BP_DIAS 68; BP_DIAS 78
[2021-12-23] VITALS (8 sets, daily range): BP systolic 99–116; BP diastolic 58–83
[2021-12-23 04:31] LABS: CLARITY URINE CLOUDY (CLEAR); COLOR URINE RED (YELLOW); KETONES URINE NEGATIVE (NEGATIVE); LEUKOCYTE ESTERASE URINE 3+ (NEGATIVE); NITRITE URINE NEGATIVE (NEGATIVE); OCCULT BLOOD URINE 3+ (NEGATIVE); PROTEIN URINE 1+ (NEGATIVE); SPECIFIC GRAVITY URINE 1.006 (1.005-1.030); UROBILINOGEN URINE 0.2 E.U./dL (0.2-1.0)
[2021-12-23 06:11] LABS: CHLORIDE 111 mEq/L (98-107)
[2021-12-23 06:16] LABS: BASOPHILS % 0.6 % (0.0-2.0); HEMATOCRIT. 22.4 % (42.0-52.0); HEMOGLOBIN. 7.4 g/dL (14.0-18.0); LYMPHOCYTES % 21.5 % (20.0-50.0); MEAN CORPUSCULAR HEMOGLOBIN 32.9 pg (28.0-32.0); MEAN PLATELET VOLUME 7.5 fl (7.4-10.4); MONOCYTES % 10.9 % (2.0-8.0); PLATELET 289 x1000/uL (130-400); RED BLOOD CELL COUNT 2.26 mill/uL (4.7-6.1); RED CELL DISTRIBUTION WIDTH 17.5 % (11.6-14.6)
[2021-12-23 06:25] LABS: HDL CHOLESTEROL 42 mg/dL (40-59); LDL CHOLESTEROL 106 mg/dL (5-100)
[2021-12-23] MEDS ORDERED: FERROUS SULFATE 325MG TABLET PO SCH (07:00)
[2021-12-23] MEDS: FERROUS SULFATE 325MG TABLET PO SCH ×3 (08:25→17:19)
[2021-12-23] MEDS ORDERED: TAMSULOSIN HCL 0.4MG SR CAPSULE PO SCH (09:00)
[2021-12-23] MEDS ORDERED: MEDICATION NOT ON FORMULARY EA (Multivitamin (Multi-Vitamin Daily) 1 TAB) PO SCH (09:00)
[2021-12-23] MEDS ORDERED: FINASTERIDE 5MG TABLET PO SCH (09:00)
[2021-12-23] MEDS: DILTIAZEM HCL 120MG CAPSULE ER 24HR PO SCH (11:05)
[2021-12-23] MEDS: DOCUSATE SODIUM 100MG CAPSULE PO SCH ×2 (11:06→17:20)
[2021-12-23] MEDS: HYDROCODONE/ACETAMINOPHEN 5/325MG TABLET PO PRN (11:07)
[2021-12-23] MEDS: MULTIVITAMINS,THER W-MINERALS TABLET PO SCH (11:08)
[2021-12-23] MEDS: FUROSEMIDE 20MG TABLET PO SCH (11:21)
[2021-12-23] MEDS: THIAMINE HCL 100MG TABLET PO SCH (11:21)
[2021-12-23 19:32] LABS: HEMOGLOBIN 8.6 g/dL (14.0-18.0)
[2021-12-23] MEDS ORDERED: ATORVASTATIN CALCIUM 40MG TABLET PO SCH (21:00)
[2021-12-24] VITALS: BP 111/56
[2021-12-24 04:00] VITALS: BP 104/62
[2021-12-24 07:30] LABS: BASOPHILS % 0.9 % (0.0-2.0); EOSINOPHILS % 3.6 % (0.0-5.0); LYMPHOCYTES % 23.7 % (20.0-50.0); MEAN CORPUSCULAR HEMOGLOBIN 32.1 pg (28.0-32.0); MEAN PLATELET VOLUME 7.2 fl (7.4-10.4); MONOCYTES % 10.7 % (2.0-8.0); NEUTROPHILS % 61.1 % (40.0-76.0); PLATELET 271 x1000/uL (130-400); RED CELL DISTRIBUTION WIDTH 19.5 % (11.6-14.6)
[2021-12-24 07:37] VITALS: BP 113/59
[2021-12-24 07:42] LABS: CHLORIDE 150 mEq/L (98-107)
[2021-12-24] MEDS ORDERED: DEXTROSE 5% WATER 1,000 ML IV SCH (09:45)
[2021-12-24] MEDS: MULTIVITAMINS,THER W-MINERALS TABLET PO SCH (09:52)
[2021-12-24] MEDS: DILTIAZEM HCL 120MG CAPSULE ER 24HR PO SCH (09:52)
[2021-12-24] MEDS: DOCUSATE SODIUM 100MG CAPSULE PO SCH (09:52)
[2021-12-24] MEDS: THIAMINE HCL 100MG TABLET PO SCH (09:52)
[2021-12-24] MEDS: FUROSEMIDE 20MG TABLET PO SCH (09:53)
[2021-12-24] MEDS: FERROUS SULFATE 325MG TABLET PO SCH ×2 (09:55→11:57)
[2021-12-24 10:56] LABS: CHLORIDE 109 mEq/L (98-107)
[2021-12-24 11:35] VITALS: BP 111/64
[2021-12-24] MEDS ORDERED: ATOR40TA70 PO (11:47)
[2021-12-24] MEDS: HYDROCODONE/ACETAMINOPHEN 5/325MG TABLET PO PRN (11:58)
[2021-12-24 14:12] VITALS: BP 105/54
== END 2021-12-24 17:07 | disposition home or self-care (01) | DRG 812 ==
LOC: ER 15:05 → MICUSO 16:00 → EDBEDREQ 16:03 → ENRESERV 21:49 → 4WST 23:50 → 8WST 12-23 12:45
PROVIDERS: ADMIT Hospitalist; ATTEND Hospitalist
PROC: 30233N1 Transfusion of Nonautologous Red Blood Cells into Peripheral Vein, Percutaneous Approach (ICD-10-PCS; principal; 2021-12-23)
DX: D62 Acute posthemorrhagic anemia (principal); R31.0 Gross hematuria; I50.9 Heart failure, unspecified; J44.9 Chronic obstructive pulmonary disease, unspecified; N40.0 Benign prostatic hyperplasia without lower urinary tract symptoms; I48.91 Unspecified atrial fibrillation; I11.0 Hypertensive heart disease with heart failure; E78.5 Hyperlipidemia, unspecified; E78.00 Pure hypercholesterolemia, unspecified; Z28.310 Unvaccinated for COVID-19; Z79.899 Other long term (current) drug therapy; Z82.49 Family history of ischemic heart disease and other diseases of the circulatory system; Z87.891 Personal history of nicotine dependence; Z90.79 Acquired absence of other genital organ(s)
CPT/HCPCS: 36415; 71045; 80053; 80061; 81003; 82607; 82728; 82746; 83540; 83550; 83735; 83880; 84100; 85014; 85018; 85025; 85379; 86850; 86900; 86920; 93005; 93970; 99285; J7040; P9016